=== PATIENT | female | born 1965 | race Caucasian/White ===

== ENCOUNTER 2024-02-27 16:45 | Inpatient (IN) | payer MEDICAID ==
[~2024-02-27] VITALS: Ht 137.2 cm; Wt 55.9 kg
[2024-02-27] MEDS ORDERED: HALOPERIDOL 5 MG TABLET PO PRN (17:00)
[2024-02-27] MEDS ORDERED: ZOLPIDEM TARTRATE 10 MG TABLET PO PRN (17:00)
[2024-02-27] MEDS ORDERED: PNEUMOCOCCAL VACCINE POLYVALENT 0.5 ML SYRINGE [PPSV23] IM. ONE (19:15)
[2024-02-27 20:06] LABS: GLUCOMETER DEV NAME(LOC) POC.BV; POC SARS-COV2 AG, FIA NEGATIVE (NEGATIVE)
[2024-02-27 20:13] VITALS: BP 151/77; PULSE 57; RESP 18; TEMP 97.5; O2SAT 100
[2024-02-27 20:40] LABS: GLUCOMETER DEV NAME(LOC) BV2S.; GLUCOSE,POINT OF CARE 123 MG/DL (70-110)
[2024-02-27] MEDS ORDERED: RISP2TAB45 PO (23:58)
[2024-02-27] MEDS ORDERED: TRAZ-184 PO (23:58)
[2024-02-27] MEDS ORDERED: ATOR10TA69 PO (23:58)
[2024-02-27] MEDS ORDERED: METF-1211 PO ×2 (23:58)
[2024-02-27] MEDS ORDERED: SERT-162 PO (23:58)
[2024-02-28] MEDS: MetFORMIN HCL 500 MG TABLET PO SCH ×2 (06:23→17:03)
[2024-02-28 08:06] VITALS: BP 114/61; PULSE 63; RESP 17; TEMP 97; O2SAT 97
[2024-02-28 08:16] LABS: BASOPHILS % (AUTO) 0.8 % (0.0-2.0); EOSINOPHILS % (AUTO) 1.8 % (1.0-6.0); HEMATOCRIT 39.8 % (36-46); HEMOGLOBIN 13.4 g/dL (12.0-16.0); LYMPHOCYTES # (AUTO) 2.8 K/uL (1.0-4.8); LYMPHOCYTES % (AUTO) 37.7 % (22.0-44.0); MEAN CORPUSCULAR HEMOGLOBIN 30.2 pg (26.0-34.0); MEAN CORPUSCULAR HGB CONC 33.6 G/dL (31.0-37.0); MEAN CORPUSCULAR VOLUME 90 fL (80-100); MONOCYTES # (AUTO) 0.7 K/uL (0.1-1.0); MONOCYTES % (AUTO) 9.3 % (2.0-9.0); NEUTROPHILS # (AUTO) 3.7 K/uL (1.8-7.7); NEUTROPHILS % (AUTO) 50.4 % (40.0-70.0); PLATELET COUNT (AUTO) 260 K/uL (150-450); RED BLOOD CELL COUNT(AUTO) 4.43 MIL/uL (4.00-5.20); RED CELL DISTRIBUTION WIDTH 13.1 % (11.5-14.5); WHITE BLOOD COUNT (AUTO) 7.3 K/uL (4.5-11.0)
[2024-02-28 08:44] LABS: ALANINE AMINOTRANSFERASE 44 U/L (12-78); ALBUMIN 3.3 g/dL (3.4-5.0); ALKALINE PHOSPHATASE 128 U/L (46-116); ANION GAP 6 mmol/L (8-16); ASPARTATE AMINOTRANSFERASE 19 U/L (15-37); BILIRUBIN,TOTAL 0.9 mg/dL (0.1-1.0); CALCIUM, TOTAL 9.1 mg/dL (8.8-10.5); CARBON DIOXIDE 31 mmol/L (22-29); CHLORIDE 104 mmol/L (98-107); CHOLESTEROL 275 mg/dL (131-200); CREATININE 0.89 mg/dL (0.60-1.30); GLOMERULAR FILTR. RATE CALC > 60 mL/min (>60); GLUCOSE,RANDOM 142 mg/dL (70-110); HDL CHOLESTEROL 46 mg/dL (40-60); LDL CHOL (CALC.) 183 mg/dL (0-130); POTASSIUM 4.3 mmol/L (3.5-5.1); SODIUM SERUM 141 mmol/L (136-145); TOTAL PROTEIN, SERUM 7.5 g/dL (6.4-8.2); TRIGLYCERIDES 231 mg/dL (15-150); UREA NITROGEN, BLOOD 14 mg/dL (7-18)
[2024-02-28 08:44] LABS: APPEARANCE,URINE CLEAR (CLEAR); BILIRUBIN,URINE NEGATIVE (NEGATIVE); COLOR,URINE LIGHT YELLOW (YELLOW); GLUCOSE, URINE (UA) TRACE mg/dL (NEGATIVE); KETONES,URINE NEGATIVE (NEGATIVE); LEUKOCYTE ESTERASE ,URINE TRACE (NEGATIVE); NITRATE,URINE NEGATIVE (NEGATIVE); OCCULT BLOOD,URINE NEGATIVE (NEGATIVE); PH,URINE 6.5 (5.0-8.0); PH,URINE DRUG SCREEN 6.5 (5.0-8.0); PROTEIN,URINE NEGATIVE (NEGATIVE); SPECIFIC GRAVITIY, URINE 1.018 (1.003-1.030); UROBILINOGEN,URINE <=1.0 mg/dL (<=1.0)
[2024-02-28] MEDS ORDERED: ONDANSETRON HCL 4 MG TABLET PO PRN (08:45)
[2024-02-28] MEDS ORDERED: MAGNESIUM HYDROXIDE SUSPENSION 30 ML UDCUP PO PRN (08:45)
[2024-02-28] MEDS ORDERED: ALBUTEROL SULFATE HFA 90 MCG/PUFF 8 GM INHALER IH PRN (08:45)
[2024-02-28] MEDS ORDERED: DOCUSATE SODIUM 100 MG CAPSULE PO PRN (08:45)
[2024-02-28] MEDS ORDERED: NICOTINE 14 MG/24 HOUR PATCH TD PRN (08:45)
[2024-02-28] MEDS ORDERED: IBUPROFEN 400 MG TABLET PO PRN (08:45)
[2024-02-28] MEDS ORDERED: PETROLATUM,WHITE 28 GM JELLY TP PRN (08:45)
[2024-02-28] MEDS ORDERED: CloNIDine HCL 0.1 MG TABLET PO PRN (08:45)
[2024-02-28] MEDS ORDERED: GuaiFENesin/D-METHORPHAN [SUGAR-FREE] 200-20MG/10 ML SYRUP UDCUP PO PRN (08:45)
[2024-02-28] MEDS ORDERED: ACETAMINOPHEN 325 MG TABLET PO PRN (08:45)
[2024-02-28] MEDS ORDERED: MAG HYDROX/ALUMINUM HYD/SIMETH ES 30 ML SUSPENSION UDCUP PO PRN (08:45)
[2024-02-28 08:58] LABS: ALCOHOL, URINE DRUG SCREEN NEGATIVE (NEGATIVE); AMPHET/METH SCREEN,URINE NEGATIVE (NEGATIVE); BARBITURATE SCREEN, URINE NEGATIVE (NEGATIVE); BENZODIAZEPINES SCREEN,URINE NEGATIVE (NEGATIVE); CANNABINOID SCREEN,URINE NEGATIVE (NEGATIVE); COCAINE SCREEN,URINE NEGATIVE (NEGATIVE); METHADONE SCREEN, URINE NEGATIVE (NEGATIVE); OPIATE SCREEN,URINE NEGATIVE (NEGATIVE); PHENCYCLIDINE SCREEN,URINE NEGATIVE (NEGATIVE)
[2024-02-28] MEDS: LORazepam 2 MG TABLET PO PRN (09:01)
[2024-02-28] MEDS: ATORVASTATIN CALCIUM 10 MG TABLET PO SCH (09:01)
[2024-02-28 09:36] LABS: BACTERIA,URINE None Seen /HPF (None Seen); RBC,URINE None Seen /HPF (0-2); SQUAMOUS EPITHELIAL CELL,UR Few /LPF (None Seen); WBC,URINE None Seen /HPF (0-5)
[2024-02-28] MEDS: SERTRALINE HCL 100 MG TABLET PO SCH (10:53)
[2024-02-28 20:25] VITALS: BP 124/78; PULSE 86; RESP 20; TEMP 97.6; O2SAT 96
[2024-02-28] MEDS: RisperiDONE 2 MG TABLET PO SCH (20:27)
[2024-02-28] MEDS: TraZODone HCL 50 MG TABLET PO SCH (20:27)
[2024-02-29 08:08] VITALS: BP 118/69; PULSE 69; RESP 18; TEMP 97.1; O2SAT 100
[2024-02-29 20:51] VITALS: BP 112/61; PULSE 112; RESP 16; TEMP 97.3; O2SAT 97
[2024-03-01 08:17] VITALS: BP 129/76; PULSE 65; RESP 18; TEMP 97.8; O2SAT 99
[2024-03-01] MEDS: LOPERAMIDE HCL 2 MG CAPSULE PO PRN (12:21)
[2024-03-01 20:24] VITALS: BP 125/77; PULSE 74; RESP 18; TEMP 97.2; O2SAT 98
[2024-03-02 01:06] LABS: HEPATITIS C AB (EIA) Non Reactive (Non Reactive)
[2024-03-02 08:35] VITALS: BP 103/67; PULSE 65; RESP 15; TEMP 97.5; O2SAT 96
[2024-03-02 20:30] VITALS: BP 101/50; PULSE 61; RESP 16; TEMP 98.2; O2SAT 97
[2024-03-03 08:34] VITALS: BP 121/62; PULSE 97; RESP 18; TEMP 98.2; O2SAT 100
[2024-03-03 20:18] VITALS: BP 112/73; PULSE 50; RESP 16; TEMP 97.6; O2SAT 98
[2024-03-04 09:16] VITALS: BP 133/63; PULSE 80; RESP 17; TEMP 97; O2SAT 95
[2024-03-04] MEDS ORDERED: RISP-32 PO (11:55)
[2024-03-04] MEDS ORDERED: TRAZ-252 PO (11:55)
[2024-03-04] MEDS ORDERED: ATOR10TA PO (12:01)
== END 2024-03-04 17:15 | disposition home or self-care (01) | DRG 754 ==
LOC: B2S 16:58
PROVIDERS: ADMIT Psychiatry & Neurology Child & Adolescent Psychiatry; ATTEND Psychiatry & Neurology Child & Adolescent Psychiatry
PROC: GZHZZZZ Group Psychotherapy (ICD-10-PCS; principal; 2024-03-01)
DX: F32.9 Major depressive disorder, single episode, unspecified (principal); F22 Delusional disorders; E78.5 Hyperlipidemia, unspecified; E11.9 Type 2 diabetes mellitus without complications; G47.00 Insomnia, unspecified; Z20.822 Contact with and (suspected) exposure to COVID-19; I10 Essential (primary) hypertension; F41.9 Anxiety disorder, unspecified; Z79.84 Long term (current) use of oral hypoglycemic drugs; Z79.899 Other long term (current) drug therapy; Z59.01 Sheltered homelessness
CPT/HCPCS: 80053; 80061; 80307; 81001; 82962; 83036; 84439; 84443; 85025; 86803; 87340